=== PATIENT | female | born 1995 | race American Indian/Alaskan Native ===

== ENCOUNTER 2019-10-17 18:22 | Emergency (ER) | payer MEDICAID ==
[2019-10-17] MEDS ORDERED: SODIUM CHLORIDE 0.9% 1000 ML 1,000 ML IV ONE (18:48)
[2019-10-17] MEDS ORDERED: METOCLOPRAMIDE 10 MG/2 ML INJ IV ONE (18:48)
[2019-10-17 19:18] LABS: Basophils # (Auto) 0.1 K/mm3 (0.0-0.1); Eosinophils # (Auto) 0.1 K/mm3 (0.0-0.4); Eosinophils % (Auto) 0.8 % (0.0-4.3); Hematocrit 40.4 % (30.3-42.9); Hemoglobin 13.3 gm/dl (10.1-14.3); Lymphocytes # (Auto) 1.6 K/mm3 (1.2-5.4); Lymphocytes % (Auto) 21.1 % (13.4-35.0); Mean Corpuscular HGB Conc 33 % (30-34); Mean Corpuscular Volume 85 fl (79-97); Monocytes # (Auto) 0.8 K/mm3 (0.0-0.8); Monocytes % (Auto) 10.3 % (0.0-7.3); Platelet Count 334 K/mm3 (140-440); Red Blood Count 4.74 M/mm3 (3.65-5.03); Red Cell Distribution Width 12.8 % (13.2-15.2)
[2019-10-17 19:25] LABS: Alanine Aminotransferase 12 units/L (7-56); Albumin 5.2 g/dL (3.9-5); BUN/Creatinine Ratio 14; Blood Urea Nitrogen 11 mg/dL (7-17); Calcium 10.5 mg/dL (8.4-10.2); Hemolysis Index 15
--- NOTE | 2019-10-17 20:12 | Emergency Department Report ---
Vomiting/Diarrhea - [facility] Chief Complaint: Nausea/Vomiting/Diarrhea Stated Complaint: N/V X1 WEEK/6W PREG Time Seen by Provider: 10/17/19 18:47 Duration: 5 Days Severity: moderate Nausea/Vomiting Severity: Moderate Diarrhea Severity: None Symptoms: No Watery Diarrhea, No Bloody diarrhea, No Fever, No Able to Tolerate Fluids, No Recent Unusual Foods, No Recent Untreated Water, No Recent use of Antibiotics, No Family w/ Similar Symptoms, No Contacts w/ Similar Symptoms, No Rash, No Hematuria, No Recent URI Symptoms Other History: 23-year-old presents to the emergency room with 4 to 5-day history of vomiting. Patient reports she is approximately 6 weeks with her last menstrual August 29, 2019. Para 1. Denies any abdominal pain vaginal discharge or vaginal bleeding. Reports that she is followed by Ryan Abdullahi [facility]. Patient denies any allergies to any medications. ED Review of Systems ROS: Stated complaint: N/V X1 WEEK/6W PREG Other details as noted in HPI ED Past Medical Hx - Past Medical History Hx Asthma: Yes - Surgical History Past Surgical History?: No - Social History Smoking Status: Never Smoker Substance Use Type: None - Medications Home Medications: Home Medications Medication Instructions Recorded Confirmed Last Taken Type Doxylamine Succinate [Unisom] 25 mg PO BID PRN #20 tablet 10/17/19 Unknown Rx Metoclopramide [Reglan] 10 mg PO TID #15 tab 10/17/19 Unknown Rx Pyridoxine [Vitamin B-6 50MG TAB] 50 mg PO DAILY #20 tab 10/17/19 Unknown Rx Vomiting Diarrhea Exam - Exam General: Vital signs noted. No distress. Alert and acting appropriately. Neurologic: Alert and oriented, no deficits. Musculoskeletal: Unremarkable. ED Course Vital Signs 10/17/19 18:37 Temperature 97.9 F Pulse Rate 92 H Respiratory 16 Rate Blood Pressure 113/56 O2 Sat by Pulse 100 Oximetry ED Medical Decision Making - Lab Data Result diagrams: 10/17/19 18:51 10/17/19 18:51 - Medical Decision Making 23-year-old presents to the emergency room with 4 to 5-day history of vomiting. Patient reports she is approximately 6 weeks with her last menstrual August 29, 2019. Para 1. Denies any abdominal pain vaginal discharge or vaginal bleeding. Reports that she is followed by Ryan Abdullahi [facility]. Patient denies any allergies to any medications. IV insertion, normal saline, Reglan 10 mg IV. Critical care attestation.: If time is entered above; I have spent that time in minutes in the direct care of this critically ill patient, excluding procedure time. ED Disposition Clinical Impression: Hyperemesis gravidarum, Ketonuria Disposition: TO HOME OR SELFCARE Is pt being admited?: No Does the pt Need Aspirin: No Condition: Stable Instructions: Hyperemesis Gravidarum (ED) Additional Instructions: Take pain medication as prescribed. Follow up with your [facility]. Increase your fluids. Prescriptions: Metoclopramide [Reglan] 10 mg PO TID #15 tab Doxylamine Succinate [Unisom] 25 mg PO BID PRN #20 tablet PRN Reason: Nausea And Vomiting Pyridoxine [Vitamin B-6 50MG TAB] 50 mg PO DAILY #20 tab Referrals: PRIMARY CARE, [Primary Care Provider] - 3-[address] [facility] [Provider Group] - 3-5 Days Forms: Work/School Release Form(ED)
[2019-10-17 21:04] LABS: Bacteria,Urine 1+ /HPF (Negative); Bilirubin,Urine NEG (Negative); Blood,Urine NEG (Negative); Color,Urine Yellow (Yellow); Mucus,Urine 3+ /HPF; Urobilinogen,Urine < 2.0 mg/dL (<2.0)
[2019-10-17 22:29] VITALS: BP 99/55
== END 2019-10-17 21:48 | disposition home or self-care (01) ==
LOC: ED 18:22
DX: O21.0 Mild hyperemesis gravidarum (principal); O99.511 Diseases of the respiratory system complicating pregnancy, first trimester; R82.4 Acetonuria; Z3A.01 Less than 8 weeks gestation of pregnancy
CPT/HCPCS: 36415; 80053; 81001; 85025; 96361; 96374; 99284; J2765; J7030